=== PATIENT | female | born 1970 | race Caucasian/White ===

== ENCOUNTER 2017-01-24 17:31 | Inpatient (IN) | payer OTHER ==
[~2017-01-24] VITALS: Ht 157.5 cm; Wt 70.9 kg
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
--- NOTE | ~2017-01-24 | CON ---
[place], [place] REPORT OF CONSULTATION NAME: PHYLLIS STERLING UNIT #: [id number] ROOM: 406 DOCTOR: YOLI CARTWRIGHT,AUGUST BIRTHDATE: [birth year] DOS: 01/25/2017 HISTORY OF PRESENT ILLNESS: The patient is a 46-year-old female who was admitted last evening with a fever. She had had a temperature of 104 yesterday at home, it was 103.1 in the Emergency Room. She complained of severe headache. She had some photosensitivity as well as achiness all over, she thought she had the flu. She denies any nausea, vomiting or diarrhea. No cough or shortness of breath. She lives with her fiance who has not been ill. She has had a CT of the abdomen and pelvis that was essentially unremarkable, other than some bibasilar atelectasis. The ultrasound of the abdomen was normal. Chest x-ray was clear. Blood cultures are negative thus far. Her influenza screen was negative. Urine cultures negative. A rapid strep was negative. She was given Levaquin IV. Temperature of 103.1 on admission with pulse 131. She has recently diagnosed approximately 3-4 months ago with hepatitis B. She is following with Dr. Anglin, has not yet begun treatment. Her tox screen was negative. She states she was delirious and confused when she was admitted last night, and does not remember coming to the hospital. PAST MEDICAL HISTORY: As above. She has had neck and back surgeries, bipolar disorder, chronic pain. FAMILY MEDICAL HISTORY: Parents are alive and health. SOCIAL HISTORY: She is originally from [place]. She noted to the [place] area earlier this year and has been involved in moving from [place] to [place]. Her only hobbies are crafts which she performs indoors. She has not been hiking, camping, etc. No outdoor work. She is not employed. She lives with her finance who has not been ill. She is a smoker, approximately 7 cigarettes per day since she was a teenager. No alcohol or illicit drug use. States she is not sexually active, although again, she lives with her fiance. She does not know how she contracted hepatitis C. CURRENT MEDICATIONS: Include Levaquin, K-Phos, Lovenox, Optiray, Restoril. LABORATORY DATA: Cultures as reviewed above. WBC is 7.0, platelets 190. On her differential, monocytes were elevated and lymphocytes were low. BUN 7 and creatinine 0.47. Ammonia 17, AST 31, ALT 89. VITAL SIGNS: Temperature 99.2, pulse 106, respirations 18, BP 116/66. REVIEW OF SYSTEMS: As above in history of present illness. Again, she complains of neck stiffness. She is unable to flex her neck, complains of severe headache pain 10/10. No rashes, no itch. No wounds. No bug bites to her knowledge. No joint swelling or edema. She is edentulous. No sore throat. She was well prior to 2 days ago. She is complaining of shaking chills currently with feeling that her temperature is rising. PHYSICAL EXAMINATION: GENERAL: A 46-year-old female, nontoxic in appearance. HEENT AND NECK: Normocephalic. Limited neck range of motion. Has significant [place], [place] REPORT OF CONSULTATION NAME: PHYLLIS STERLING UNIT #: [id number] ROOM: [facility] DOCTOR: YOLI CARTWRIGHTAUGUST BIRTHDATE: [birth year] pain with trying . Has some pain with trying to bring her chin down. No thrush. Edentulous. No cervical lymphadenopathy. LUNGS: Clear to auscultation bilaterally. Respirations even and unlabored. HEART: Regular rhythm. No murmur appreciated. ABDOMEN: Soft, positive bowel sounds, nondistended. Slight tenderness in right upper quad. EXTREMITIES: No edema, deformity or cyanosis. SKIN: Warm, dry, free of rashes. ASSESSMENT: Possible meningitis, more likely aseptic. PLAN: At this point, given her severe headache, high fevers, neck pain, confusion at the time of admission last night and photosensitivity, she needs to have an LP and will start Rocephin and vancomycin, pending an LP. Check Monospot. Follow blood and CSF cultures. IgM and IgG for West Nile and HSV by PCR in addition to bacterial workup of the CSF. ADDENDUM. ALLERGIES: Include AUGMENTIN, which caused a rash. States that she has taken Keflex previously and only had complications with vaginal yeast infection at that time. AUGUST CHAY KENT JOZEF RESTREPO MD CM:CONSTR:REPORT OF CONSULTATION 1515 01/25/17 2116 interface
--- NOTE | ~2017-01-24 | PR ---
[place], [place] PROGRESS NOTE NAME: PHYLLIS STERLING UNIT #: [id number] ROOM: 406 DOCTOR: LAURO BARRIENTOS,JOZEF Grimes BIRTHDATE: [birth year] DOS: 01/26/2017 ADDENDUM I agree with the above plans as described and follow the patient up clinically and adjust accordingly. JOZEF RESTREPO MD CM:PNTRANS JOZEF RESTREPO MD 01/26/17 2313 interface
--- NOTE | ~2017-01-24 | CON ---
[place], [place] REPORT OF CONSULTATION NAME: PHYLLIS STERLING UNIT #: [id number] ROOM: 406 DOCTOR: LAURO BARRIENTOS,JOZEF Grimes BIRTHDATE: [birth year] DOS: 01/25/2017 ADDENDUM After reviewing the labs, charts and radiographs, I agree with above plans as described in the consult. We will follow the patient clinically and make adjustments accordingly. JOZEF RESTREPO MD CM:CONSTR:REPORT OF CONSULTATION 1622 01/25/17 2135 interface
--- NOTE | ~2017-01-24 | PR ---
[place], [place] PROGRESS NOTE NAME: PHYLLIS STERLING UNIT #: [id number] ROOM: 406 DOCTOR: YOLI CARTWRIGHT BIRTHDATE: [birth year] DOS: 01/26/2017 SUBJECTIVE: The patient is being followed for fever. She underwent her lumbar puncture. Her cell count is unremarkable as is glucose and protein. The culture is negative. West Nile and HSV are pending. Her blood cultures are negative. Her influenza was negative. Urine culture negative. Monos negative. HIV is pending. She is feeling better, temps are staying down. Denies any nausea, vomiting, diarrhea, headache is much better, does still have some in the occipital area, but much improved. Her temperature max today was 100.5. She did spike again to 104.6. Yesterday afternoon, it is around 1600 and her tachycardia has subsided. LABORATORY DATA: Cultures as reviewed above. WBC 7.7, platelets 215. BUN 5, creatinine 0.67, AST 39, ALT 89. PHYSICAL EXAMINATION: GENERAL: A 46-year-old female in no acute distress. HEAD, EYES, EARS, NOSE AND THROAT: Normocephalic, no thrush. LUNGS: Clear to auscultation bilaterally. Respirations even and unlabored. HEART: Regular rhythm. No murmur appreciated. ABDOMEN: Soft, nontender. EXTREMITIES: No edema or deformity. SKIN: Warm, dry, free of rashes. ASSESSMENT: Fever, likely viral. PLAN: Currently, all of her bacterial cultures are negative. CSF is unremarkable for meningitis. We will stop the Rocephin and vancomycin. Her HIV does need to be followed up. If she does not spike any further fevers and is feeling well tomorrow, she could be discharged with instructions to follow up with her primary care physician and with our group in a week or two. AUGUST CHAY KENT [place], [place] PROGRESS NOTE NAME: PHYLLIS STERLING UNIT #: [id number] ROOM: 406 DOCTOR: YOLI CARTWRIGHTAUGUST BIRTHDATE: [birth year] JOZEF RESTREPO MD CM:TRUONG [phone] YOLI [employer] ARCHITECT 01/28/17 1616 interface
--- NOTE | ~2017-01-24 | PR ---
[place], [place] PROGRESS NOTE NAME: PHYLLIS STERLING UNIT #: [id number] ROOM: 406 DOCTOR: YOLI CARTWRIGHT,AUGUST BIRTHDATE: [birth year] DOS: SUBJECTIVE: The patient is being followed for viral illness. She had high fevers and severe headache. She had LP done and cell count, glucose and protein were unremarkable. Cultures negative. She currently on no antibiotics. Her white count 6.1, platelets 199, BUN 25, creatinine 0.4. AST 50, ALT 93. She is alert and oriented, feeling better, does still have a headache that is 7/10 at worse, 4/10 currently posterior head. Denies any nausea, vomiting or diarrhea. No cough or shortness of breath. No rash or itch. No issues with confusion, hallucinations she had a few days ago was better. PHYSICAL EXAMINATION: VITAL SIGNS: Show a temp 98.7, pulse 93, respirations 20, BP 128/78, her max temp in the last 24 hours was 100.1 at midnight. GENERAL: A 46-year-old female, in no acute distress. HEAD, EYES, EARS, NOSE AND THROAT: Normocephalic. NEUROLOGIC: Unremarkable. LUNGS: Clear to auscultation bilaterally. Respirations even and unlabored. HEART: Regular rhythm. No murmur appreciated. ABDOMEN: Soft, nontender. EXTREMITIES: No edema, deformity or cyanosis. SKIN: Warm, dry, free of rashes. ASSESSMENT AND PLAN: Viral syndrome, which does seem to be improving. She did not have a CT of her head today, which demonstrated atypical linear area of low attenuation on the right extended from the superior, subcortical white matter of frontal lobe to the basal ganglia of uncertain etiology, possibly artifact. She is going to have an MRI done tomorrow. At this point, we will continue to follow off of the antibiotics. Her note for CSF workup is pending regarding virus and HSV, though her CSF workup was normal, making these less likely. ADDENDUM. After reviewing the chart, labs and microbiology, I agree with the above plans as described. We will follow the patient up clinically and adjust accordingly. AUGUST CHAY KENT [place], [place] PROGRESS NOTE NAME: PHYLLIS STERLING UNIT #: [id number] ROOM: 406 DOCTOR: YOLI CARTWRIGHT BIRTHDATE: [birth year] JOZEF RESTREPO MD CM:PNFLORY [id number] YOLI CARTWRIGHT 01/28/17 1659 interface
[2017-01-24 17:33] VITALS: BP 153/54
[2017-01-24 18:01] LABS: BILIRUBIN NEGATIVE (NEGATIVE); BLOOD NEGATIVE (NEGATIVE); CLARITY CLEAR (CLEAR); COLOR YELLOW (YELLOW); GLUCOSE NEGATIVE (NEGATIVE); KETONE NEGATIVE (NEGATIVE); LEUKO ESTERASE TRACE (NEGATIVE); NITRITE NEGATIVE (NEGATIVE); SPECIFIC GRAVITY <= 1.005 (1.005-1.030)
[2017-01-24 18:07] LABS: BACTERIA TRACE; RBC 0-2 rbc/hpf (0-2)
[2017-01-24 18:15] LABS: BASO % 0.2 % (0.0-1.0); EOS % 0.4 % (1.0-4.0); HEMATOCRIT 35.9 % (37.0-47.0); HEMOGLOBIN 12.2 g/dl (12.0-16.0); LYMPH # 2.1 10*3/uL (1.3-4.4); LYMPH % 20.2 % (27.0-41.0); MEAN CELL VOLUME 88.4 fl (81.0-99.0); MONO % 9.6 % (3.0-9.0); NEUT # 7.3 10*3/uL (2.3-7.9); NEUT % 69.4 % (47.0-73.0); PLATELET COUNT AUTOMATED 250 10*3/uL (130-400); RED BLOOD COUNT 4.06 10*6/uL (4.10-5.10); RED CELL DISTRI WIDTH 12.7 % (0-14.5); WHITE BLOOD COUNT 10.5 10*3/uL (4.8-10.8)
--- NOTE | 2017-01-24 18:18 | NUR ---
1747 Motrin given for fever.
[2017-01-24 18:32] LABS: ALBUMIN 3.2 gm/dl (3.1-4.5); ALKALINE PHOSPHATASE 133 U/L (45-117); BUN 8 mg/dl (7-24); CHLORIDE 101 mmol/L (98-107); CREATININE 0.88 mg/dL (0.55-1.02); LIPASE 134 U/L (73-393); SGOT/AST 43 IU/L (3-35); SGPT/ALT 124 U/L (12-78); SODIUM 131 mmol/L (136-145); TOTAL PROTEIN 7.6 gm/dL (6.4-8.2)
[2017-01-24 18:35] LABS: TROPONIN I < 0.015 ng/ml (<0.045)
--- NOTE | 2017-01-24 19:00 | NUR ---
NURSE TO NURSE REPORT GIVEN TO THIS RN.
[2017-01-24 19:40] VITALS: BP 118/66
[2017-01-24 20:36] LABS: URINE AMPHETAMINES < 1000 (1000ng/ml); URINE BARBITURATES < 200 (200ng/ml); URINE BENZODIAZEPINES < 200 (200ng/ml); URINE CANNABINOIDS (THC) < 50 (50ng/ml); URINE COCAINE < 300 (300ng/ml); URINE METHADONE < 300 (300ng/ml); URINE OPIATES < 300 (300ng/ml)
[2017-01-24 20:41] LABS: URINE PHENCYCLIDINE < 25 (25ng/ml)
[2017-01-24 20:51] VITALS: BP 121/70
--- NOTE | 2017-01-24 21:57 | NUR ---
UNABLE TO ESTABLISH IV ACCESS IN PT AC AT THIS TIME.
--- NOTE | 2017-01-24 22:05 | NUR ---
RENNY HOGAN MADE AWARE OF INABILITY TO ESTABLISH SECOND IV ACCESS FOR CTA TESTING.
[2017-01-24 22:17] VITALS: BP 122/63
--- NOTE | 2017-01-24 22:17 | NUR ---
A 46, admitted to , under the services of DONALD Olivares DO with a diagnosis of TACHYCARDIA, VIRAL SYNDROME. Chief complaint is ELEVATED TEMPERATURE. Patient arrived via stretcher from ER. Monitor applied. Initial assessment completed. Vital signs taken and recorded. DONALD OLIVARES DO notified of admission to the unit. Orders received. See assessment for past medical history, medications and allergies. Patient and/or family oriented to unit. [facility] visitation policy reviewed. Clothing/patient valuable form completed. JANE MCINTYRE
[2017-01-24] MEDS ORDERED: VISTARIL25 MG PO (22:40)
[2017-01-24] MEDS ORDERED: GABAPENTIN400 MG PO (22:41)
[2017-01-24] MEDS ORDERED: ABILIFY20 MG PO (22:41)
[2017-01-24] MEDS ORDERED: AMITRIPTYLINE25 MG PO (22:45)
[2017-01-25] VITALS (7 sets, daily range): BP systolic 116–131; BP diastolic 58–73
--- NOTE | 2017-01-25 00:41 | NUR ---
24 HR chart check completed.
--- NOTE | 2017-01-25 01:09 | NUR ---
Medicated with Tylenol po prn for headache. Will monitor effectiveness. Call light within reach.
--- NOTE | 2017-01-25 01:18 | NUR ---
Started CT scan prep. Patient tolerating well.
--- NOTE | 2017-01-25 02:00 | NUR ---
Patient resting quietly in bed with eyes closed. Tylenol effective. Will continue to monitor. Call light within reach.
[2017-01-25 06:05] LABS: HEMOGLOBIN 10.5 g/dl (12.0-16.0); MEAN CELL VOLUME 89.9 fl (81.0-99.0); MEAN CORPUSCULAR HGB 30.4 pg (27.0-31.0); MEAN CORPUSCULAR HGB CONC 33.9 g/dl (33.0-37.0); PLATELET COUNT AUTOMATED 190 10*3/uL (130-400); RED BLOOD COUNT 3.45 10*6/uL (4.10-5.10)
[2017-01-25 06:15] LABS: ALBUMIN 2.4 gm/dl (3.1-4.5); ALKALINE PHOSPHATASE 101 U/L (45-117); BUN 7 mg/dl (7-24); CHLORIDE 111 mmol/L (98-107); CHOLESTEROL 139 mg/dL (<200); CREATININE 0.47 mg/dL (0.55-1.02); FREE T4 1.05 ng/dl (0.76-1.46); HDL CHOLESTEROL 30 mg/dl (40-60); LDL CHOLESTEROL 95 mg/dL (9-159); MAGNESIUM 1.9 mg/dL (1.5-2.1); PHOSPHOROUS 2.4 mg/dL (2.5-4.9); POTASSIUM 3.9 mmol/L (3.5-5.1); SGOT/AST 31 IU/L (3-35); SGPT/ALT 89 U/L (12-78); SODIUM 139 mmol/L (136-145); TRIGLYCERIDES 72 mg/dl (<150); VLDL CHOLESTEROL 14 mg/dL (6-40)
[2017-01-25 06:22] LABS: INTERNATIONAL NORM RATIO 1.1 (2.0-3.5)
--- NOTE | 2017-01-25 06:29 | NUR ---
Called and notified Dr. Zapata's answering service regarding consult. They said they would page Dr. Canseco,who is alarm security or surveillance monitor.
[2017-01-25 06:31] LABS: BASOPHILS 1 % (0-1); TOTAL CELLS COUNTED 100 #CELLS
--- NOTE | 2017-01-25 06:31 | NUR ---
Dr. Canseco called in and was notified of consult. He said he would be in this am to see patient.
[2017-01-25 06:32] LABS: PLATELET SUFFICIENCY NORMAL (NORMAL)
--- NOTE | 2017-01-25 06:37 | NUR ---
Called and notified 's answering service regarding consult. They said they would page Dr. Dimas who is environmental health safety manager.
--- NOTE | 2017-01-25 06:40 | NUR ---
Dr. Dimas called in and was notified of consult. She said she would be in this am to see patient.
[2017-01-25 09:03] LABS: VITAMIN D, 25-HYDROXY 18.6 ng/mL (30-100)
--- NOTE | 2017-01-25 09:36 | NUR ---
Kiln Loader in to talk to patient. Patient states lives at home with boyfriend. There are few steps in the home. Physician: Pharmacy: mail Home health services: none Patient's level of ADLs: INDEPENDENT Patient has working utilities: all working DME: none Follow-up physician's appointment after d/c: will be made by hospitalist nurse director upon discharge Does patient want to access PORTAL?: no Discharge plan discussed with patient, patient lives at home with boyfriend, she states she is independent in adls and ambulation, patient states she will be going back home when able and denies any home needs. ELOISA JOYA
[2017-01-25 17:01] LABS: CSF RBC < 1000 /uL; CSF WBC 3 /uL
[2017-01-25 17:06] LABS: CSF GLUCOSE 69 mg/dL (40-70); CSF TOTAL PROTEIN 31.5 mg/dL (15-45)
[2017-01-25 17:08] LABS: CLARITY CLEAR; COLOR COLORLESS
[2017-01-25 18:10] LABS: CSF LYMPHOCYTES 68 % (40-80); CSF MONOCYTES 28 % (15-45)
[2017-01-26] VITALS: BP 104/70
--- NOTE | 2017-01-26 00:40 | NUR ---
24 HR chart check completed.
--- NOTE | 2017-01-26 02:49 | NUR ---
Medicated with [place] po prn for headache. Will monitor effectiveness. Call light within reach.
--- NOTE | 2017-01-26 03:50 | NUR ---
Patient resting quietly in bed with eyes closed. [place] effective. Will continue to monitor. Call light within reach.
[2017-01-26 05:34] LABS: ALBUMIN 2.6 gm/dl (3.1-4.5); ALKALINE PHOSPHATASE 110 U/L (45-117); BUN 5 mg/dl (7-24); CHLORIDE 106 mmol/L (98-107); CREATININE 0.67 mg/dL (0.55-1.02); POTASSIUM 3.5 mmol/L (3.5-5.1); SGOT/AST 39 IU/L (3-35); SGPT/ALT 89 U/L (12-78); SODIUM 137 mmol/L (136-145); TOTAL PROTEIN 6.2 gm/dL (6.4-8.2)
[2017-01-26 06:03] LABS: HEMATOCRIT 30.3 % (37.0-47.0); HEMOGLOBIN 10.1 g/dl (12.0-16.0); MEAN CELL VOLUME 89.9 fl (81.0-99.0); MEAN CORPUSCULAR HGB CONC 33.3 g/dl (33.0-37.0); MEAN PLATELET VOLUME 10.3 fl (9.6-12.3); PLATELET COUNT AUTOMATED 215 10*3/uL (130-400); RED BLOOD COUNT 3.37 10*6/uL (4.10-5.10); WHITE BLOOD COUNT 7.7 10*3/uL (4.8-10.8)
[2017-01-26 06:11] LABS: HIV 1+2 AB + HIV1 P24 AG Non Reactive (Non Reactive)
[2017-01-26 06:11] LABS: HEPATITIS C VIRUS ANTIBODY <0.1 s/co (0.0-0.9)
[2017-01-26 06:44] LABS: BASOPHILS 1 % (0-1); PLATELET SUFFICIENCY NORMAL (NORMAL); TOTAL CELLS COUNTED 100 #CELLS
[2017-01-26 08:00] VITALS: BP 114/71
--- NOTE | 2017-01-26 09:17 | NUR ---
PATIENT MEDICATED WITH PO NORCO AT THIS TIME PER PRN ORDER FOR COMPLAINTS OF HEADACHE. WILL MONITOR FOR EFFECTIVENESS.
--- NOTE | 2017-01-26 10:30 | NUR ---
PER PATIENT, PAIN MEDICATION EFFECTIVE.
--- NOTE | 2017-01-26 11:53 | NUR ---
patient medicated with tylenol for temp off 100.5. will monitor.
[2017-01-26 12:00] VITALS: BP 111/60
--- NOTE | 2017-01-26 13:00 | NUR ---
TEMP DOWN TO 98.1. TYLENOL EFFECTIVE
[2017-01-26 16:00] VITALS: BP 110/69
--- NOTE | 2017-01-26 17:28 | NUR ---
PT MEDICATED WITH NORCO PER PRN ORDER FOR COMPLAINTS OF HEADACHE. WILL MONITOR.
--- NOTE | 2017-01-26 18:22 | NUR ---
PER PATIENT, NORCO HAS BEEN EFFECTIVE FOR HEADACHE. NO FURTHER COMPLAINTS
[2017-01-26 20:00] VITALS: BP 115/64
--- NOTE | 2017-01-26 20:00 | NUR ---
WATCHING TV. NO ACUTE DISTRESS NOTED. RESPIRATIONS EASY. LUNGS DIMINISHED, CLEAR. PULSE OX 98% RA. IV FLUIDS INFUSING PER ORDER. CALL LIGHT WITHIN REACH. NO VOICED COMPLAINTS
--- NOTE | 2017-01-26 21:33 | NUR ---
REQUESTED AND RECEIVED NORCO PER PRN ORDER FOR COMPLAINTS OF GENERALIZED ACHES. CALL LIGHT WITHIN REACH. WILL MONITOR FOR EFFECTIVENESS
--- NOTE | 2017-01-26 23:00 | NUR ---
EARLIER MEDS APPEAR EFFECTIVE. SLEEPING. RESPIRATIONS EASY. IV FLUIDS MAINTAINED. CALL LIGHT WITHIN REACH.
[2017-01-27] VITALS: BP 127/60
--- NOTE | 2017-01-27 | NUR ---
SLEEPING. RESPIRATIONS EASY. VSS.
--- NOTE | 2017-01-27 03:00 | NUR ---
SLEEPING. IV FLUIDS MAINTAINED. CALL LIGHT WITHIN REACH
--- NOTE | 2017-01-27 04:55 | NUR ---
REQUESTED AND RECEIVED NORCO PER PRN ORDER FOR COMPLAINTS OF GENERALIZED PAIN RATING A 5. CALL LIGHT WITHIN REACH. WILL MONITOR FOR EFFECTIVENESS
[2017-01-27 05:32] LABS: ALBUMIN 2.3 gm/dl (3.1-4.5); ALKALINE PHOSPHATASE 149 U/L (45-117); BUN 4 mg/dl (7-24); CHLORIDE 108 mmol/L (98-107); CREATININE 0.58 mg/dL (0.55-1.02); SGOT/AST 50 IU/L (3-35); SGPT/ALT 93 U/L (12-78); SODIUM 141 mmol/L (136-145); TOTAL PROTEIN 6.1 gm/dL (6.4-8.2)
[2017-01-27 05:54] LABS: HEMATOCRIT 31.6 % (37.0-47.0); HEMOGLOBIN 10.3 g/dl (12.0-16.0); MEAN CELL VOLUME 91.1 fl (81.0-99.0); MEAN CORPUSCULAR HGB 29.7 pg (27.0-31.0); MEAN CORPUSCULAR HGB CONC 32.6 g/dl (33.0-37.0); MEAN PLATELET VOLUME 10.5 fl (9.6-12.3); PLATELET COUNT AUTOMATED 199 10*3/uL (130-400); RED BLOOD COUNT 3.47 10*6/uL (4.10-5.10); WHITE BLOOD COUNT 6.1 10*3/uL (4.8-10.8)
--- NOTE | 2017-01-27 06:00 | NUR ---
STATES RELIEF FROM EARLIER MEDS. RESTING IN BED. IV FLUIDS MAINTAINED. CALL LIGHT WITHIN REACH. NO FURTHER VOICED COMPLAINTS
[2017-01-27 07:10] LABS: ATYPICAL LYMPHS 1 % (0-0); PLATELET SUFFICIENCY NORMAL (NORMAL); TOTAL CELLS COUNTED 100 #CELLS
[2017-01-27 08:00] VITALS: BP 111/70
--- NOTE | 2017-01-27 09:45 | NUR ---
PATIENT MEDICATED WITH NORCO FOR COMPLAINTS OF HEADACHE AT THIS TIME. WILL CONTINUE TO MONITOR.
--- NOTE | 2017-01-27 10:45 | NUR ---
PATIENT STATES THAT HEADACHE HAS BEEN RELIEVED. MEDICATION EFFECTIVE.
[2017-01-27 12:00] VITALS: BP 117/69
--- NOTE | 2017-01-27 14:18 | NUR ---
PATIENT MEDICATED WITH NORCO AT THIS TIME PER PRN ORDER FOR COMPLAINTS OF HEADACHE & BACK PAIN. WILL MONITOR FOR EFFECTIVENESS.
--- NOTE | 2017-01-27 15:30 | NUR ---
PER PATIENT, MEDICATION HAS BEEN EFFECTIVE. NO FURTHER COMPLAINTS.
[2017-01-27 16:00] VITALS: BP 128/78
--- NOTE | 2017-01-27 18:29 | NUR ---
PT MEDICATED WITH PO NORCO FOR COMPLAINTS OF BACK PAIN & HEADACHE. WILL MONITOR.
[2017-01-27 20:00] VITALS: BP 122/76
[2017-01-28] VITALS: BP 117/66
[2017-01-28 00:07] LABS: HSV-2 DNA Negative (Negative)
[2017-01-28 04:00] VITALS: BP 120/60
[2017-01-28 06:23] LABS: HEMATOCRIT 30.4 % (37.0-47.0); HEMOGLOBIN 10.3 g/dl (12.0-16.0); MEAN CELL VOLUME 89.4 fl (81.0-99.0); MEAN CORPUSCULAR HGB 30.3 pg (27.0-31.0); MEAN CORPUSCULAR HGB CONC 33.9 g/dl (33.0-37.0); MEAN PLATELET VOLUME 10.2 fl (9.6-12.3); PLATELET COUNT AUTOMATED 239 10*3/uL (130-400)
[2017-01-28 06:55] LABS: ALBUMIN 2.6 gm/dl (3.1-4.5); ALKALINE PHOSPHATASE 164 U/L (45-117); BUN 6 mg/dl (7-24); CHLORIDE 107 mmol/L (98-107); POTASSIUM 3.9 mmol/L (3.5-5.1); SGOT/AST 50 IU/L (3-35); SGPT/ALT 100 U/L (12-78); SODIUM 141 mmol/L (136-145); TOTAL PROTEIN 6.6 gm/dL (6.4-8.2)
[2017-01-28 07:09] LABS: ATYPICAL LYMPHS 1 % (0-0); TOTAL CELLS COUNTED 100 #CELLS
[2017-01-28 07:11] LABS: PLATELET SUFFICIENCY NORMAL (NORMAL)
[2017-01-28 08:00] VITALS: BP 126/79
--- NOTE | 2017-01-28 11:02 | NUR ---
NOTIFIED DR KILGORE OF POSITIVE HBSAG RESULTS.
[2017-01-28 11:04] LABS: HEPATITIS B SURFACE AG Positive (Negative)
[2017-01-28 12:00] VITALS: BP 130/76
[2017-01-28 13:08] LABS: CSF WEST NILE VIRUS IGG Negative (Negative)
--- NOTE | 2017-01-28 14:16 | NUR ---
NORCO 5/325 MG GIVEN FOR C/O PAIN,12/20.
--- NOTE | 2017-01-28 14:59 | NUR ---
PT TRANSPORTED OFF FLOOR FOR MRI OF HEAD.
[2017-01-28 15:06] LABS: CSF WEST NILE VIRUS IGM Negative (Negative)
[2017-01-28 16:00] VITALS: BP 120/76
--- NOTE | 2017-01-28 16:50 | NUR ---
Discharge instructions reviewed with patient/family. Patient receptive and verbalizes understanding. Follow-up care arranged. Written instructions given to patient/family.TELEMETRY ACCOUNTED FOR AND HEPLOCK REMOVED. SUMAYA LIU
[2017-01-28 18:05] LABS: CSF CRYPTOCOCCUS AG Negative (Negative)
[2017-01-28 18:05] LABS: CSF CRYPTOCOCCUS AG Negative (Negative)
--- NOTE | 2017-01-28 18:22 | NUR ---
Discharge instructions reviewed with patient/family. Patient receptive and verbalizes understanding. Follow-up care arranged. Written instructions given to patient/family.HEPLOCK REMOVED. SUMAYA LIU
== END 2017-01-28 18:22 | disposition home or self-care (01) | DRG 871 ==
LOC: ED 17:31 → 4E 20:05 → EDHOLD 20:05 → 4E 20:40
PROVIDERS: Family Medicine; Family Medicine Adult Medicine; Hospitalist; Internal Medicine; Internal Medicine Nephrology; Nurse Practitioner; Physician Assistant; ADMIT Internal Medicine
PROC: 009U3ZX Drainage of Spinal Canal, Percutaneous Approach, Diagnostic (ICD-10-PCS; principal; 2017-01-25)
PROC: B01B1ZZ Fluoroscopy of Spinal Cord using Low Osmolar Contrast (ICD-10-PCS; 2017-01-25)
DX: A41.9 Sepsis, unspecified organism (principal); G93.5 Compression of brain; E43 Unspecified severe protein-calorie malnutrition; B19.10 Unspecified viral hepatitis B without hepatic coma; F31.9 Bipolar disorder, unspecified; K44.9 Diaphragmatic hernia without obstruction or gangrene; G89.21 Chronic pain due to trauma; K76.0 Fatty (change of) liver, not elsewhere classified; J32.9 Chronic sinusitis, unspecified; B34.9 Viral infection, unspecified; E55.9 Vitamin D deficiency, unspecified; F41.1 Generalized anxiety disorder; F17.210 Nicotine dependence, cigarettes, uncomplicated; Z68.28 Body mass index [BMI] 28.0-28.9, adult; Z71.6 Tobacco abuse counseling; Z90.710 Acquired absence of both cervix and uterus; Z82.49 Family history of ischemic heart disease and other diseases of the circulatory system; Z88.1 Allergy status to other antibiotic agents; Z88.8 Allergy status to other drugs, medicaments and biological substances; Z83.49 Family history of other endocrine, nutritional and metabolic diseases

== ENCOUNTER → 2017-04-16 | Outpatient (CLI) | payer OTHER ==
[~2017-04-16] MED LIST: ABILIFY20 MG PO; AMITRIPTYLINE25 MG PO; GABAPENTIN400 MG PO; VISTARIL25 MG PO
[2017-04-16 08:17] LABS: BASO % 0.4 % (0.0-1.0); EOS # 0.1 10*3/uL (0.0-0.4); EOS % 1.2 % (1.0-4.0); HEMATOCRIT 40.1 % (37.0-47.0); HEMOGLOBIN 13.7 g/dl (12.0-16.0); LYMPH # 1.8 10*3/uL (1.3-4.4); MEAN CELL VOLUME 89.1 fl (81.0-99.0); MEAN CORPUSCULAR HGB 30.4 pg (27.0-31.0); MEAN CORPUSCULAR HGB CONC 34.2 g/dl (33.0-37.0); MEAN PLATELET VOLUME 10.8 fl (9.6-12.3); MONO # 0.4 10*3/uL (0.1-1.0); MONO % 7.7 % (3.0-9.0); NEUT # 2.8 10*3/uL (2.3-7.9); NEUT % 54.3 % (47.0-73.0); PLATELET COUNT AUTOMATED 259 10*3/uL (130-400); RED CELL DISTRI WIDTH 14.2 % (0-14.5); WHITE BLOOD COUNT 5.1 10*3/uL (4.8-10.8)
[2017-04-16 08:46] LABS: ALBUMIN 3.7 gm/dl (3.1-4.5); ALKALINE PHOSPHATASE 172 U/L (45-117); BUN 7 mg/dl (7-24); CHLORIDE 108 mmol/L (98-107); CREATININE 0.73 mg/dL (0.55-1.02); POTASSIUM 4.1 mmol/L (3.5-5.1); SGOT/AST 156 IU/L (3-35); SGPT/ALT 387 U/L (12-78); SODIUM 142 mmol/L (136-145); TOTAL PROTEIN 8.1 gm/dL (6.4-8.2)
[2017-04-17 07:07] LABS: HEP B CORE AB TOTAL 006718 Positive (Negative); HEPATITIS B SURFACE AB 006395 Non Reactive (.); HEPATITIS Be ANTIGEN 006619 Positive (Negative)
[2017-04-17 17:07] LABS: AB TO HEPATITIS Be AG 006635 Negative (Negative)
[2017-04-18 09:32] LABS: HEPATITIS B SURFACE AG Positive (Negative)
== END | disposition home or self-care (01) ==
LOC: LAB 07:33
PROVIDERS: Specialist
DX: B19.10 Unspecified viral hepatitis B without hepatic coma (principal)